=== PATIENT | male | born 1985 | race African-American/Black ===

== ENCOUNTER 2021-09-30 04:24 | Emergency (ER) | payer MEDICAID ==
[~2021-09-30] VITALS: Ht 188 cm; Wt 100.0 kg
[2021-09-30 06:40] LABS: EOSINOPHILS % 2.3 % (0.0-5.0); HEMATOCRIT. 40.7 % (42.0-52.0); HEMOGLOBIN. 13.6 g/dL (14.0-18.0); LYMPHOCYTES % 16.5 % (20.0-50.0); MEAN CORPUSCULAR HEMOGLOBIN 29.5 pg (28.0-32.0); MEAN CORPUSCULAR VOLUME 87.9 fL (80.0-94.0); MEAN PLATELET VOLUME 9.6 fl (7.4-10.4); MONOCYTES % 10.1 % (2.0-8.0); NEUTROPHILS % 70.1 % (40.0-76.0); PLATELET 235 x1000/uL (130-400); RED BLOOD CELL COUNT 4.63 mill/uL (4.7-6.1); RED CELL DISTRIBUTION WIDTH 13.7 % (11.6-14.6)
[2021-09-30 06:49] LABS: CHLORIDE 112 mEq/L (98-107)
[2021-09-30 06:55] LABS: ETHANOL BLOOD 174 mg/dL
[2021-09-30 07:11] LABS: CLARITY URINE CLEAR (CLEAR); COLOR URINE YELLOW (YELLOW); KETONES URINE 1+ (NEGATIVE); LEUKOCYTE ESTERASE URINE NEGATIVE (NEGATIVE); NITRITE URINE NEGATIVE (NEGATIVE); OCCULT BLOOD URINE NEGATIVE (NEGATIVE); PH URINE 5.5 (4.5-8.0); PROTEIN URINE NEGATIVE (NEGATIVE); SPECIFIC GRAVITY URINE 1.018 (1.005-1.030)
[2021-09-30 07:27] LABS: *AMPHETAMINES SCREEN URINE NEGATIVE (NEGATIVE); *BARBITURATES SCREEN URINE NEGATIVE (NEGATIVE); *BENZODIAZEPINES SCREEN URINE NEGATIVE (NEGATIVE); *COCAINE SCREEN URINE NEGATIVE (NEGATIVE); METHADONE URINE SCREEN NEGATIVE (NEGATIVE); OPIATES URINE SCREEN NEGATIVE (NEGATIVE)
[2021-09-30 07:28] LABS: CANNABINOID URINE SCREEN PRESUMTIVE POSITIVE (NEGATIVE); PHENCYCLIDINE URINE SCREEN NEGATIVE (NEGATIVE)
[2021-09-30] MEDS: DULOXETINE HCL 20MG DR CAPSULE PO SCH ×2 (09:00→20:47)
[2021-09-30] MEDS ORDERED: ONDANSETRON 4MG ODT PO ONE (14:00)
[2021-09-30] MEDS: TRAZODONE HCL 50MG TABLET PO SCH (20:47)
[2021-09-30] MEDS: POLYVINYL ALCOHOL OPHTH DROPS 15ML BOTHEYE SCH (20:47)
[2021-10-01] MEDS ORDERED: ACETAMINOPHEN 325MG TABLET PO ONE (06:00)
[2021-10-01] MEDS ORDERED: LORAZEPAM 1MG TABLET PO ONE (06:00)
[2021-10-01] MEDS: POLYVINYL ALCOHOL OPHTH DROPS 15ML BOTHEYE SCH ×3 (06:10→21:00)
[2021-10-01] MEDS: DULOXETINE HCL 20MG DR CAPSULE PO SCH ×2 (09:00→22:37)
[2021-10-01] MEDS ORDERED: IBUPROFEN 400MG TABLET PO ONE (13:30)
[2021-10-01] MEDS ORDERED: ALBUTEROL (0.083%) 2.5MG/3ML NEB HHN STA (19:43)
[2021-10-01] MEDS: TRAZODONE HCL 50MG TABLET PO SCH (21:58)
[2021-10-01 22:42] VITALS: BP 156/96
== END 2021-10-02 00:30 ==
LOC: ER 04:24
DX: T14.91XA Suicide attempt, initial encounter (principal); X58.XXXA Exposure to other specified factors, initial encounter; F32.9 Major depressive disorder, single episode, unspecified; J45.909 Unspecified asthma, uncomplicated; I10 Essential (primary) hypertension; Z20.822 Contact with and (suspected) exposure to COVID-19
CPT/HCPCS: 36415; 80053; 80305; 80320; 81003; 82962; 85025; 93005; 94640; 99285; C9803; Q0162; U0003; U0005; Z7610; G0480

== ENCOUNTER 2022-07-08 13:05 | Inpatient (IN) | payer MEDICAID ==
[~2022-07-08] VITALS: Ht 185.4 cm; Wt 91.0 kg
[2022-07-08] MEDS ORDERED: ONDANSETRON HCL 4MG/2ML INJ IV STA ×2 (13:29→14:14)
[2022-07-08] MEDS ORDERED: MORPHINE SULFATE 4 MG/ML CPJ (NOT FOR IM USE) IV STA ×2 (13:29→14:14)
[2022-07-08] MEDS ORDERED: SODIUM CHLORIDE 0.9% 1,000 ML IV ONE (13:30)
[2022-07-08] MEDS ORDERED: HYDR-4001 MT (16:07)
[2022-07-08] MEDS ORDERED: IBUP-2028 MT (16:07)
[2022-07-08] MEDS ORDERED: ONDANSETRON HCL 4MG/2ML INJ IV ONE (16:15)
[2022-07-08] MEDS ORDERED: MORPHINE SULFATE 4 MG/ML CPJ (NOT FOR IM USE) IV ONE (16:15)
[2022-07-08 19:04] LABS: CHLORIDE 108 mEq/L (98-107)
[2022-07-08 19:06] LABS: BASOPHILS % 2.8 % (0.0-2.0); EOSINOPHILS % 2.4 % (0.0-5.0); HEMOGLOBIN. 12.2 g/dL (14.0-18.0); MEAN CORPUSCULAR HEMOGLOBIN 24.8 pg (28.0-32.0); MEAN CORPUSCULAR VOLUME 77.5 fL (80.0-94.0); MEAN PLATELET VOLUME 9.6 fl (7.4-10.4); NEUTROPHILS % 60.8 % (40.0-76.0); PLATELET 276 x1000/uL (130-400); RED BLOOD CELL COUNT 4.91 mill/uL (4.7-6.1); RED CELL DISTRIBUTION WIDTH 14.2 % (11.6-14.6)
[2022-07-08 19:11] LABS: INR 0.9; PARTIAL THROMBOPLASTIN TIME 26.4 sec (23.4-31.0); PROTHROMBIN TIME 10.1 sec (9.6-11.0)
[2022-07-08] MEDS ORDERED: HYDROCODONE/ACETAMINOPHEN 5/325MG TABLET PO PRN (21:15)
[2022-07-08] MEDS ORDERED: NALOXONE HCL 0.4MG/ML VIAL IV PRN (22:45)
[2022-07-08] MEDS: HYDROCODONE/ACETAMINOPHEN 10/325MG TABLET PO PRN (23:10)
[2022-07-09] MEDS ORDERED: MORPHINE SULFATE 2 MG/ML CPJ (NOT FOR IM USE) IV NR (00:45)
[2022-07-09] MEDS: HYDROCODONE/ACETAMINOPHEN 10/325MG TABLET PO PRN ×2 (04:23→08:44)
[2022-07-09] MEDS ORDERED: IPRATROPIUM/ALBUTEROL 0.5-3(2.5)MG/3ML NEB HHN PRN (04:30)
[2022-07-09] MEDS ORDERED: ONDANSETRON HCL 4MG/2ML INJ IV PRN (09:00)
[2022-07-09] MEDS ORDERED: AMLODIPINE 10MG TABLET PO SCH (09:00)
[2022-07-09] MEDS ORDERED: HYDRALAZINE HCL 100MG TABLET PO SCH ×2 (09:00)
[2022-07-09] MEDS ORDERED: HYDR100T26 PO (09:37)
[2022-07-09] MEDS ORDERED: HYDR-4009 PO (09:37)
[2022-07-09] MEDS ORDERED: AMLO10TA80 PO (09:37)
[2022-07-09 09:50] VITALS: BP 184/105
== END 2022-07-09 10:48 | disposition home or self-care (01) | DRG 342 ==
LOC: ER 13:05 → MICUSO 20:39 → EDBEDREQ 20:44 → EDBEDREQTM 20:44 → EDBEDREQ 20:54
PROVIDERS: ADMIT Internal Medicine; ATTEND Internal Medicine
DX: S42.215A Unspecified nondisplaced fracture of surgical neck of left humerus, initial encounter for closed fracture (principal); D64.9 Anemia, unspecified; D86.9 Sarcoidosis, unspecified; E16.2 Hypoglycemia, unspecified; I10 Essential (primary) hypertension; J45.909 Unspecified asthma, uncomplicated; I16.0 Hypertensive urgency; Z20.822 Contact with and (suspected) exposure to COVID-19; W01.0XXA Fall on same level from slipping, tripping and stumbling without subsequent striking against object, initial encounter; Y93.89 Activity, other specified; Y92.89 Other specified places as the place of occurrence of the external cause; Y99.8 Other external cause status
CPT/HCPCS: 36415; 73030; 73060; 80053; 82962; 85025; 86850; 86900; 87426; 99285; A4565; C9803; J2270; J2405; J7030